=== PATIENT | female | born 1995 | race Caucasian/White ===

== ENCOUNTER → 2023-03-04 12:40 | Outpatient (CLI) | payer OTHER, SELFPAY ==
--- NOTE | 2023-03-04 12:58 | DI.MRI.S_ITS ---
PROCEDURE: MR KNEE RT WO CON INDICATIONS: PAIN IN RIGHT KNEE TECHNIQUE: Noncontrast sagittal PD fast spin echo and T2 fast spin echo with fat saturation, sagittal 3-D FLASH with fat saturation; coronal T1 spin echo and PD fast spin echo with fat saturation, and axial PD fast spin echo with fat saturation through the knee. COMPARISON: None. FINDINGS: Image quality: Excellent. Menisci: The medial and lateral menisci demonstrate normal morphology and internal signal. The meniscal root ligaments appear intact. Cruciate ligaments: The anterior cruciate ligament appears mildly thickened with subtle intrasubstance T2 hyperintense signal. The PCL is intact. Medial structures: The medial collateral ligament appears intact. The posterior oblique ligament, semimembranosus tendon insertions, oblique popliteal ligament, and meniscocapsular junction appear intact. Visualized portions of the pes anserinus tendons appear normal. No abnormal bursal fluid. Lateral structures: The lateral collateral ligament, long and short heads of the biceps femoris tendon appear intact. The popliteus tendon appears normal; the popliteofibular ligament appears intact. Iliotibial band appears normal. Anterior structures: Distal quadriceps tendinosis at its superior patellar insertion is seen. Proximal patellar tendinosis at its inferior patellar insertion is also noted.. Patellar alignment is normal. No femoral trochlear dysplasia or ventral trochlear prominence. No edema in the infrapatellar fat pad. Bones and cartilage: No bone marrow contusions or fractures. The cartilage of the medial and lateral femorotibial compartments, as well as the patellofemoral compartment, appears normal in thickness. Joint space: There is small knee joint fluid. There is a lobulated Hale's cyst measures 2.6 x 1.2 x 4.1 cm in size. Normal appearing synovial plicae are incidentally noted. IMPRESSION: 1. Low-grade sprain/intrasubstance partial-thickness tear involving anterior cruciate ligament near its tibial insertion. No ACL rupture. The PCL is intact. 2. No evidence of focal meniscal tear. 3. No marrow edema. No fracture or dislocation. Articulating cartilages are intact. Small joint effusion and a small Hale's cyst as above. 4. Mild distal quadriceps tendinosis and proximal patellar tendinosis. No full-thickness tendon rupture. Dictated by: Zia Skelton M.D. on 03/04/2023 at 15:27 Approved by: Zia Skelton M.D. on 03/04/2023 at 15:30
== END ==
PROVIDERS: Referring Provider Internal Medicine; Visit Provider Internal Medicine
DX: M25.561 Pain in right knee (principal); S83.511A Sprain of anterior cruciate ligament of right knee, initial encounter; M25.461 Effusion, right knee; M71.21 Synovial cyst of popliteal space [Baker], right knee
CPT/HCPCS: 73721